=== PATIENT | male | born 1955 | race Caucasian/White ===

== ENCOUNTER 2021-05-13 09:53 | Emergency (ER) | payer OTHER ==
[2021-05-13 10:43] LABS: Absolute Lymphocytes (CBC) 0.9 K/uL (0.7-4.9); Hematocrit 47.5 % (39.6-49.0); Lymphocytes % 13.4 % (15.3-44.8); MPV 8.9 fL (7.6-11.3); RBC Red Blood Cell Count 5.27 M/uL (4.33-5.43)
[2021-05-13] MEDS ORDERED: ASPIRIN 81 MG CHEWABLE TABLET ONE (10:46)
[2021-05-13 11:00] LABS: BUN Blood Urea Nitrogen 16 mg/dL (7-18); Bicarbonate 27 mmol/L (21-32); Glucose Level 115 mg/dL (74-106); Potassium 4.3 mmol/L (3.5-5.1); Sodium Level 137 mmol/L (136-145)
[2021-05-13 11:01] LABS: NT PRO-BNP 72 pg/mL (<125)
[2021-05-13 11:06] LABS: Troponin High Sensitivity < 3.00 pg/mL (<58.9)
--- NOTE | 2021-05-13 11:23 | RAD REPORT ---
EXAM DESCRIPTION: CT - Head Brain Wo Cont - 05/13/2021 10:58 am CLINICAL HISTORY: Numbness COMPARISON: None. TECHNIQUE: Computed axial tomography of the head was obtained. IV contrast was not requested. All CT scans are performed using dose optimization technique as appropriate and may include automated exposure control or mA/KV adjustment according to patient size. FINDINGS: An intracranial bleed is not seen . The ventricles are normal in caliber. No extra-axial fluid collection is noted. Fluid within the sinuses/ mastoids is not seen. IMPRESSION: No acute intracranial abnormality is seen. If patient's symptoms persist MRI of the bra in would be recommended.
--- NOTE | 2021-05-13 11:35 | RAD REPORT ---
EXAM DESCRIPTION: Ellis Single View3 10:46 am CLINICAL HISTORY: Chest pain COMPARISON: none FINDINGS: The lungs appear clear of acute infiltrate. The heart is normal size IMPRESSION: No acute abnormalities displayed
--- NOTE | 2021-05-13 11:52 | ER ---
Nurse's Notes [facility] Name: Reid Summers Age: 65 yrs Sex: Male : 1955 Arrival Date: 05/13/2021 Time: 10:00 Bed 20 Private MD: Diagnosis: Chest pain, unspecified Presentation: 05/13 10:20 Chief complaint: Patient states: "Thursday I felt like I had a stroke or something aa5 because the left side of my body went numb but only for a minute and I've been having chest pressure since then". Pt currently denies numbness, reports chest pressure. Reports slight SOB. Coronavirus screen: shortness of breath. Ebola Screen: No symptoms or risks identified at this time. Initial Sepsis Screen: Does the patient meet any 2 criteria? No. Patient's initial sepsis screen is negative. Does the patient have a suspected source of infection? No. Patient's initial sepsis screen is negative. Risk Assessment: Do you want to hurt yourself or someone else? Patient reports no desire to harm self or others. Onset of symptoms was April 2021. 10:20 Acuity: JOHANNY 2 aa5 10:20 Method Of Arrival: Ambulatory aa5 Historical: - Allergies: 10:22 "Sulfa eye drops"; aa5 - Home Meds: 10:22 None [Active]; aa5 - PMHx: 10:22 None; aa5 - PSHx: 10:22 None; aa5 - Immunization history:: Client reports having NOT received the Covid vaccine. Flu vaccine is not up to date. - Social history:: Smoking status: Patient denies any tobacco usage or history of. Screenin:37 Abuse screen: Denies threats or abuse. Nutritional screening: No deficits noted. ap3 Tuberculosis screening: No symptoms or risk factors identified. Fall Risk No fall in past 12 months (0 pts). No secondary diagnosis (0 pts). IV access (20 points). Ambulatory Aid- None/Bed Rest/Nurse Assist (0 pts). Gait- Normal/Bed Rest/Wheelchair (0 pts) Mental Status- Oriented to own ability (0 pts). Total Hyde Fall Scale indicates No Risk (0-24 pts). Assessment: 10:36 General: Appears in no apparent distress. comfortable, Behavior is calm, cooperative, ap3 appropriate for age. Pain: Complains of pain in chest Pain does not radiate. Pain began gradually, 2-3 days ago. Neuro: Level of Consciousness is awake, alert, obeys commands, Oriented to person, place, time, situation, Appropriate for age Gait is steady, Speech is normal. Cardiovascular: Reports chest pain. Respiratory: Airway is patent Respiratory effort is even, unlabored, Respiratory pattern is regular, symmetrical. 11:49 Reassessment: Patient and/or family updated on plan of care and expected duration. Pain ap3 level reassessed. Patient is alert, oriented x 3, equal unlabored respirations, skin warm/dry/pink. Vital Signs: 10:20 BP 170 / 94; Pulse 84; Resp 20 S; Temp 98.8(TE); Pulse Ox 100% on R/A; Height 5 ft. 11 aa5 in. (180.34 cm) (R); 11:13 BP 150 / 81; Pulse 66; Resp 17; Pulse Ox 96% on R/A; ap3 11:49 BP 140 / 77; Pulse 66; Pulse Ox 97% on R/A; ap3 ED Course: 10:00 Patient arrived in ED. ds1 10:20 Arm band placed on. aa5 10:20 Inserted saline lock: 20 gauge in right antecubital area, using aseptic technique. ap3 Blood collected. 10:22 Triage completed. aa5 10:25 EKG completed in triage. Results shown to MD. aa5 10:27 Ling Spann FNP-C is PHCP. kb 10:27 Bryce Villatoro MD is Attending Physician. kb 10:34 Patient has correct armband on for positive identification. Placed in gown. Bed in low mh5 position. Call light in reach. Side rails up X 1. cardiac monitor technician on. Pulse ox on. NIBP on. 10:35 Initial lab(s) drawn, by ED staff, sent to lab. EKG done. mh5 10:36 Denisha Marie, KISHORE is Primary Nurse. ap3 10:38 Patient maintains SpO2 saturation greater than 95% on room air. ap3 10:46 XRAY Chest (1 view) In Process Unspecified. EDMS 10:58 CT Head Brain wo Cont In Process Unspecified. EDMS 12:03 No provider procedures requiring assistance completed. IV discontinued, intact, ap3 bleeding controlled, No redness/swelling at site. Pressure dressing applied. Administered Medications: 10:46 Drug: Aspirin Chewable Tablet 324 mg Route: PO; ap3 12:03 Follow up: Response: No adverse reaction ap3 Outcome: 11:51 Discharge ordered by MD. jj 12:03 Discharged to home ambulatory. ap3 12:03 Condition: good 12:03 Discharge instructions given to patient, Instructed on discharge instructions, follow up and referral plans. Demonstrated understanding of instructions, follow-up care. 12:04 Patient left the ED. ap3 Signatures: Dispatcher [employer] EDHI Ling Spann, BARKING MACHINE FEEDER-C BARKING MACHINE FEEDER-Manisha Hudson ds1 Alice Hill, RN RN aa5 Mallory Longoria 5 Denisha Marie RN RN ap3 Corrections: (The following items were deleted from the chart) 10:23 10:22 Allergies: Sulfa (Sulfonamide Antibiotics); aa5 aa5 10:26 10:20 BP 170 / 94; Pulse 84bpm; Resp 20bpm; Spontaneous; Pulse Ox 100% RA; Height 5 ft. aa5 11 in. Reported; aa5
--- NOTE | 2021-05-13 11:52 | EDPHYS ---
Physician Documentation [facility] Name: Reid Summers Age: 65 yrs Sex: Male : 1955 Arrival Date: 05/13/2021 Time: 10:00 Bed 20 Private MD: ED Physician Bryce Villatoro HPI: 05/13 10:33 This 65 yrs old Male presents to ER via Ambulatory with complaints of Chest Tightness, kb Weakness. 10:33 The patient or guardian reports chest pain that is located primarily in the anterior kb chest wall. Onset: 4 day(s) ago. The pain does not radiate. Associated signs and symptoms: The patient has no apparent associated signs or symptoms. The chest pain is described as a pressure. Duration: The patient or guardian reports a single episode, that is still ongoing. Modifying factors: The symptoms are alleviated by nothing. the symptoms are aggravated by nothing. Severity of pain: At its worst the pain was moderate in the emergency department the pain is unchanged. The patient has not experienced similar symptoms in the past. The patient has not recently seen a physician. Pt reports he felt numbness for a few minutes on left side of the body on Thursday. States it went away and hasn't returned, but he has had chest pressure/heaviness since then. States the heaviness hasn't gotten better or worse, just not going away so he came to get it checked out. Denies any personal cardiac history. . Historical: - Allergies: 10:22 "Sulfa eye drops"; aa5 - Home Meds: 10:22 None [Active]; aa5 - PMHx: 10:22 None; aa5 - PSHx: 10:22 None; aa5 - Immunization history:: Client reports having NOT received the Covid vaccine. Flu vaccine is not up to date. - Social history:: Smoking status: Patient denies any tobacco usage or history of. ROS: 10:32 Constitutional: Negative for fever, chills, and weight loss. kb 10:32 Cardiovascular: Positive for chest pain, Negative for edema, orthopnea, palpitations, paroxysmal nocturnal dyspnea. 10:32 All other systems are negative. Exam: 10:27 ECG was reviewed by the Attending Physician. kb 10:32 Constitutional: This is a well developed, well nourished patient who is awake, alert, kb and in no acute distress. Head/Face: Normocephalic, atraumatic. ENT: Moist Mucous membranes Cardiovascular: Regular rate and rhythm with a normal S1 and S2. No gallops, murmurs, or rubs. No pulse deficits. Respiratory: Respirations even and unlabored. No increased work of breathing. Talking in full sentences Abdomen/GI: Soft, non-tender. No distention Skin: Warm, dry with normal turgor. Normal color. MS/ Extremity: Pulses equal, no cyanosis. Neurovascular intact. Full, normal range of motion. Neuro: Awake and alert, GCS 15, oriented to person, place, time, and situation. Moves all extremities. Normal gait. Psych: Awake, alert, with orientation to person, place and time. Behavior, mood, and affect are within normal limits. Vital Signs: 10:20 BP 170 / 94; Pulse 84; Resp 20 S; Temp 98.8(TE); Pulse Ox 100% on R/A; Height 5 ft. 11 aa5 in. (180.34 cm) (R); 11:13 BP 150 / 81; Pulse 66; Resp 17; Pulse Ox 96% on R/A; ap3 11:49 BP 140 / 77; Pulse 66; Pulse Ox 97% on R/A; ap3 MDM: 10:27 Patient medically screened. kb 11:12 The patient was given aspirin in the Emergency Department. Data reviewed: vital signs, nurses notes. Data interpreted: Pulse oximetry: on room air is 100 %. Interpretation: normal. ED course: HEART score 2. 11:49 Counseling: I had a detailed discussion with the patient and/or guardian regarding: the kb historical points, exam findings, and any diagnostic results supporting the discharge/admit diagnosis, lab results, radiology results, the need for outpatient follow up, a clay transporter, a family practitioner, to return to the emergency department if symptoms worsen or persist or if there are any questions or concerns that arise at home. ED course: Discussed case with Dr Villatoro. In agreement with outpatient follow up. Pt has no medical history, diagnostics are wnl. Pt in agreement with plan of care as well. Will follow up with Dr Dean and cardiology. 05/13 10:27 Order name: Basic Metabolic Panel 05/13 10:27 Order name: CBC with Diff 05/13 10:27 Order name: NT PRO-BNP; Complete Time: 11:11 kb 05/13 10:27 Order name: Troponin HS kb 05/13 10:28 Order name: Basic Metabolic Panel; Complete Time: 11:11 EDMS 05/13 10:28 Order name: CBC with Automated Diff; Complete Time: 10:45 EDMS 05/13 10:27 Order name: XRAY Chest (1 view); Complete Time: 11:36 kb 05/13 10:27 Order name: EKG; Complete Time: 10:28 kb 05/13 10:27 Order name: Cardiac monitoring; Complete Time: 10:34 kb 05/13 10:27 Order name: EKG - Nurse/Tech; Complete Time: 10:34 kb 05/13 10:27 Order name: IV Saline Lock; Complete Time: 10:37 kb 05/13 10:28 Order name: Troponin High Sensitivity; Complete Time: 11:11 EDMS 05/13 10:46 Order name: CT Head Brain wo Cont; Complete Time: 11:25 kb 05/13 10:27 Order name: Labs collected and sent; Complete Time: 10:37 kb 05/13 10:27 Order name: O2 Per Protocol; Complete Time: 10:37 kb 05/13 10:27 Order name: O2 Sat Monitoring; Complete Time: 10:37 kb EC:27 Rate is 88 beats/min. Rhythm is regular. QRS [place] is Normal. MA interval is normal at kb 162 msec. QRS interval is normal at 92 msec. QT interval is normal at 358 msec. Administered Medications: 10:46 Drug: Aspirin Chewable Tablet 324 mg Route: PO; ap3 12:03 Follow up: Response: No adverse reaction ap3 Disposition: 18:12 Co-signature as Attending Physician, Bryce Villatoro MD I agree with the assessment and kdr plan of care. Disposition Summary: 05/13/21 11:51 Discharge Ordered Location: Home kb Condition: Stable kb Diagnosis - Chest pain, unspecified kb Followup: kb - With: Emergency Department - When: As needed - Reason: Worsening of condition Followup: kb - With: Private Physician - When: 2 - 3 days - Reason: Recheck today's complaints, Continuance of care, Re-evaluation by your physician Discharge Instructions: - Discharge Summary Sheet kb - Nonspecific Chest Pain, Adult, [id number] kb Forms: - Medication Reconciliation Form kb - Thank You Letter kb - Antibiotic Education kb - Prescription Opioid Use kb Signatures: Dispatcher [employer] Ling Chanel, INSTRUCTIONAL PARAPROFESSIONAL-C JANET-Bryce Faustin MD MD kdr Calderon, Audri RN RN aa5 Denisha Marie RN RN ap3 Corrections: (The following items were deleted from the chart) 10:23 10:22 Allergies: Sulfa (Sulfonamide Antibiotics); aa5 aa5
[2021-05-13 12:16] VITALS: TEMP 98.8
[2021-05-13 12:18] VITALS: BP 140/77; O2SAT 97
--- NOTE | 2021-05-14 08:46 | EKG ---
Test Date: 2021-05-13 Test Time: 10:26:04 Back Tender Paper Machine: KATINA MEASUREMENT RESULTS: Intervals: Rate: 88 DC: 162 QRSD: 92 QT: 358 QTc: 433 [place]: P: 53 DC: 162 QRS: 64 T: 54 INTERPRETIVE STATEMENTS: Normal sinus rhythm Normal ECG Compared to ECG 04/14/2001 05:51:00 No significant changes Electronically Signed On 05-14-21 08:42:31 CDT by Chan Howe
== END 2021-05-13 12:04 | disposition home or self-care (01) ==
LOC: ER 09:53
DX: R07.9 Chest pain, unspecified (principal); Z88.2 Allergy status to sulfonamides
CPT/HCPCS: 36415; 70450; 71045; 80048; 83880; 84484; 85025; 93005; 99285